=== PATIENT | female | born 2000 | race Caucasian/White ===

== ENCOUNTER → 2019-02-08 17:35 | Outpatient (CLI) | payer OTHER, SELFPAY ==
[2019-02-10 23:11] LABS: Neisseria gonorrhoeae, NAA Negative (Negative)
== END ==
PROVIDERS: Visit Provider Nurse Practitioner Obstetrics & Gynecology
DX: Z34.90 Encounter for supervision of normal pregnancy, unspecified, unspecified trimester (principal)
CPT/HCPCS: 87491; 87591

== ENCOUNTER → 2019-02-15 10:05 | Outpatient (CLI) | payer OTHER, SELFPAY ==
[2019-02-15 11:11] LABS: Basophils % 0.3 % (0.1-2.0); Eosinophils # 0.2 K/mm3 (0.0-0.4); Eosinophils % 3.8 % (0.1-12.0); Hematocrit 39.8 % (37.0-47.0); Hemoglobin 13.6 g/dL (12.2-16.2); Lymphocytes # 1.4 K/mm3 (0.7-4.5); Lymphocytes % 22.4 % (10-50); Mean Corpuscular HGB Conc 34.1 g/dL (31.8-35.4); Mean Corpuscular Hemoglobin 30.2 pg (27.0-31.2); Mean Corpuscular Volume 88.6 fl (81-99); Mean Platelet Volume 7.7 fl (7.4-10.4); Monocytes # 0.3 K/mm3 (0.1-1.0); Monocytes % 4.6 % (1.7-9.3); Neutrophils # 4.3 K/mm3 (1.8-7.8); Neutrophils % 68.9 % (37.0-80.0); Platelet Count 180 K/mm3 (142-424); Red Blood Count 4.49 M/mm3 (4.20-5.40); Red Cell Distribution Width 12.7 % (11.5-17.5); White Blood Count 6.3 K/mm3 (4.5-13.0)
--- NOTE | 2019-02-15 13:56 | US_ITS ---
US OB transvaginal HISTORY: ITS.REASON: US OB Dates ORDERING PHYSICIAN: Emery Guevara MD PATIENT AGE: 18 years COMPARISON: None FINDINGS: An intrauterine gestational sac is present with a pole with a crown-rump length of 3.11cm correlating to gestational age of 10w0d. heart tones are present with an FHR of 167 bpm's. Yolk sac is noted. The amnion and chorion have not yet fused. Adnexa: Unremarkable. IMPRESSION: Live intrauterine gestation at 10 weeks 0 days as described above. Estimated due date by Ultrasound is 09/13/2019
[2019-02-16 07:39] LABS: HIV Screen 4th Generation wRfx Non Reactive (Non Reactive)
[2019-02-16 09:21] LABS: Hepatitis B Surface Antigen Negative (Negative); Hepatitis C Antibody <0.1 s/co ratio (0.0-0.9); Rapid Plasma Reagin Ab Titer Non Reactive (NonRea<1:1); Rubella Antibodies, IgG 1.39 index (Immune >0.99)
== END ==
PROVIDERS: Visit Provider Nurse Practitioner Obstetrics & Gynecology
DX: Z34.90 Encounter for supervision of normal pregnancy, unspecified, unspecified trimester (principal); O26.841 Uterine size-date discrepancy, first trimester
CPT/HCPCS: 36415; 76817; 85025; 86592; 86703; 86762; 86850; 87340; 87380; G0432

== ENCOUNTER → 2019-04-28 12:45 | Outpatient (CLI) | payer OTHER, SELFPAY ==
--- NOTE | 2019-04-28 12:57 | US_ITS ---
US OB /maternal detail: INDICATION: ITS.REASON: US OB Complete ORDERING PHYSICIAN: Emery Guevara MD PATIENT AGE: 18 years TECHNIQUE: ultrasound transabdominal scanning. COMPARISON: No previous relevant studies. FINDINGS: Single viable intrauterine gestation. Cephalic position. Placenta: Anterior placenta grade 1. There appears to be an accessory lobe with the posterior fundal area. There is average amount fluid. The cervix appears satisfactory. Closed and measuring 3 cm in length. Complete survey performed and was unremarkable on the submitted images as in PACS. No discrete anomalies identified on survey imaging by technologist. Active fetus. Three-vessel cord with satisfactory umbilical cord insertion. 4- chamber heart noted. Survey of brain & ventricles unremarkable. Face and neck survey unremarkable. Diaphragm and chest views unremarkable. Abdomen: Both kidneys noted and unremarkable. Stomach noted and satisfactory. Spine: Survey of the spine satisfactory with no anomalies identified nor imaged. Both arms and legs noted. Amniotic Fluid: Adequate. Maternal adnexa: No significant findings. Measurements: Average ultrasound age 21w0d. Gestational Age 20w2d. Estimated due date by ultrasound age 1109/08/2019. Estimated weight 373 grams. BPD = 21w4d OFD = 21w2d HC = 20w5d AC = 20w6d FL = 20w5d Growth Percentile= 70 percent Heart Rate = 150 bpm Cerebellum = 20w2d Humerus = 20w6d HC/AC is 1.17 (1.09-1.26). CI is 80% (70-86%). FL/BPD is 66%. FL/AC is 22%. IMPRESSION: There is a single live fetus which is in cephalic presentation with an average ultrasound age of 21 weeks and 0 days. All parameters correlate with no obvious anomalies. Please see above for detailed description
== END ==
PROVIDERS: PCP Family Medicine; Visit Provider Nurse Practitioner Obstetrics & Gynecology
DX: Z36.0 Encounter for antenatal screening for chromosomal anomalies (principal)
CPT/HCPCS: 76811

== ENCOUNTER 2019-06-19 09:19 | Outpatient (CLI) | payer OTHER, SELFPAY ==
[2019-06-19 10:19] LABS: Glucose,Fasting 79 mg/dL (60-105)
[2019-06-19 10:55] VITALS: BP 116/52; PULSE 93; RESP 18; TEMP 36.6; O2SAT 98
[2019-06-19 11:24] LABS: Glucose 1 Hour 106 mg/dL (74-106)
== END 2019-06-19 11:10 | disposition home or self-care (01) ==
LOC: LAB 09:19
PROVIDERS: Visit Provider Nurse Practitioner Obstetrics & Gynecology
DX: Z34.90 Encounter for supervision of normal pregnancy, unspecified, unspecified trimester (principal)
CPT/HCPCS: 36415; 82951; 96372; J2790

== ENCOUNTER → 2019-08-14 17:19 | Outpatient (CLI) | payer OTHER, SELFPAY | PROVIDERS: Visit Provider Nurse Practitioner Obstetrics & Gynecology | DX: Z34.90 Encounter for supervision of normal pregnancy, unspecified, unspecified trimester (principal) | CPT/HCPCS: 86403 ==

== ENCOUNTER → 2019-08-17 09:30 | Outpatient (CLI) | payer OTHER, SELFPAY ==
--- NOTE | 2019-08-17 09:35 | US_ITS ---
PROCEDURE: US OB BPP W/FET-MAT S/D CLINICAL INDICATION: US OB BPP/GROWTH for SGA COMPARISON: OBFEMAT US OB /maternal detail from 04/28/2019 FINDINGS: There is a single live fetus which is in cephalic presentation. heart and body motion noted. breathing movement noted. Measurements: Average ultrasound age 36 weeks 3 days. Gestational Age 36 weeks 1 day Estimated due date by ultrasound age 1109/11/2019. Estimated weight 2,887.6 ggrams. BPD = 35 weeks 4 days OFD = HC = 37 weeks 0 days AC = 35 weeks 6 days FL = 37 weeks 2 days Growth Percentile= 55 percentile% Heart Rate = 142 bpm Cerebellum = Humerus = HC/AC is 1.02 CI is 0.75 FL/BPD is 0.83 FL/AC is 0.23 The biophysical profile is 8 of 8. Umbilical artery evaluation shows an SD ratio of 2.9 and a resistive index of 0.66 both less than 95th percentile Amniotic fluid index is low at 7 cm. The placenta is fundal and anterior in implantation and is grade 3 IMPRESSION: There is a single live fetus in cephalic presentation with an average ultrasound age of 36 weeks and 3 days. All parameters correlate. Estimated weight is 2887 g which is 55th percentile The biophysical profile is 8 of 8. Umbilical artery evaluation shows an SD ratio of 2.9 and a resistive index of 0.66 both less than 95th percentile Amniotic fluid index is low at 7 cm. The placenta is fundal and anterior in implantation and is grade 3 Dictated by: Jackson Felix MD 08/17/2019 17:57 Electronically signed by Jackson Felix MD in [facility] 08/17/2019 17:57
== END ==
PROVIDERS: PCP Family Medicine; Visit Provider Nurse Practitioner Obstetrics & Gynecology
DX: O36.5990 Maternal care for other known or suspected poor fetal growth, unspecified trimester, not applicable or unspecified (principal)
CPT/HCPCS: 76819

== ENCOUNTER 2019-08-26 20:29 | Outpatient (CLI) | payer OTHER, SELFPAY ==
[2019-08-26 20:39] VITALS: BMI 20.3
[2019-08-26 20:49] LABS: Microscopic, Urine URINE MICROSCOPIC (MICROSCOPIC)
[2019-08-26 20:53] LABS: Appearance,Urine CLEAR (Clear); Bilirubin,Urine Negative (Negative); Blood, Urine Negative (Negative); Color,Urine YELLOW (Yellow); Glucose,Urine (UA) Negative (Negative); Ketones,Urine Negative (Negative); Leukocyte Esterase,Urine TRACE (Negative); Nitrate,Urine Negative (Negative); Protein,Urine Negative (Negative); Urobilinogen,Urine 0.2 EU/dl (0.2)
[2019-08-26 20:54] VITALS: BP 162/91; PULSE 83; RESP 18; TEMP 36.9; O2SAT 97; BMI 20.6
[2019-08-26 21:00] LABS: Amphetamine/Metha Screen,Urine Negative ng/mL (<1000); Barbiturates Screen,Urine Negative ng/mL (<200); Benzodiazepines Screen,Urine Negative ng/mL (<200); Cannabinoid Screen,Urine Negative ng/mL (<50); Cocaine Screen,Urine Negative ng/mL (<300); Methadone Screen,Urine Negative ng/mL (<300); Opiate Screen,Urine Negative ng/mL (<300); Phencyclidine Screen,Urine Negative ng/mL (<25)
== END 2019-08-26 22:50 | disposition home or self-care (01) ==
LOC: OBOUT 20:32 → OB 20:33
PROVIDERS: PCP Family Medicine; Visit Provider Obstetrics & Gynecology
DX: O60.03 Preterm labor without delivery, third trimester (principal); Z3A.37 37 weeks gestation of pregnancy
CPT/HCPCS: 59025; 80305; 81001; 96360

== ENCOUNTER 2019-09-01 04:56 | Inpatient (IN) ==
[2019-09-01 05:40] LABS: Microscopic, Urine URINE MICROSCOPIC (MICROSCOPIC)
[2019-09-01 05:42] LABS: Basophils % 0.3 % (0.1-2.0); Eosinophils # 0.1 K/mm3 (0.0-0.4); Eosinophils % 1.3 % (0.1-12.0); Hematocrit 30.9 % (37.0-47.0); Hemoglobin 10.3 g/dL (12.2-16.2); Lymphocytes # 1.6 K/mm3 (0.7-4.5); Lymphocytes % 26.9 % (10-50); Mean Corpuscular HGB Conc 33.2 g/dL (31.8-35.4); Mean Corpuscular Volume 89.4 fl (81-99); Mean Platelet Volume 10.5 fl (7.4-10.4); Monocytes # 0.3 K/mm3 (0.1-1.0); Monocytes % 5.5 % (1.7-9.3); Neutrophils # 3.9 K/mm3 (1.8-7.8); Platelet Count 176 K/mm3 (142-424); Red Blood Count 3.45 M/mm3 (4.20-5.40); Red Cell Distribution Width 13.6 % (11.5-17.5)
[2019-09-01 05:51] LABS: Appearance,Urine CLEAR (Clear); Bilirubin,Urine Negative (Negative); Blood, Urine Negative (Negative); Color,Urine YELLOW (Yellow); Glucose,Urine (UA) Negative (Negative); Ketones,Urine Negative (Negative); Leukocyte Esterase,Urine Negative (Negative); Protein,Urine Negative (Negative); Specific Gravity, Urine >= 1.030 (1.005-1.030); Urobilinogen,Urine 0.2 EU/dl (0.2)
[2019-09-01 06:14] LABS: Amphetamine/Metha Screen,Urine Negative ng/mL (<1000); Barbiturates Screen,Urine Negative ng/mL (<200); Benzodiazepines Screen,Urine Negative ng/mL (<200); Cannabinoid Screen,Urine Negative ng/mL (<50); Cocaine Screen,Urine Negative ng/mL (<300); Methadone Screen,Urine Negative ng/mL (<300); Opiate Screen,Urine Negative ng/mL (<300); Phencyclidine Screen,Urine Negative ng/mL (<25)
[2019-09-01 06:16] LABS: Bacteria,Urine Trace /lpf; WBC,Urine Occasional #/hpf (0-3)
--- NOTE | 2019-09-01 07:35 | Progress Note ---
Labor Note - Subjective: Date: 09/01/19 Time: 07:35 regular contraction - Objective: NST:: Reactive Contractions:: every 2-3 minutes Cervical Dilation:: 3 Effacement:: 90% Station: 0 Membranes: artificially ruptured - Fetus: Monitoring?: Yes monitoring type:: External - Assessment: Labor progressing?: Yes Cephalopelvic disproportion?: No Patient Problems: All Active Problems (Acute) Fall (Acute) Hip pain, right (Acute) - Plan: Anesthesia for epidural?: No Continue to labor down?: Yes Plan for ?: No Continue to monitor?: Yes Start pushing?: No
--- NOTE | 2019-09-01 07:37 | History & Physical Report ---
OB - H&P: HPI Antepartum - History of Present Illness Chief complaint: Oligohydramnios History of present illness: She is a 18-year-old 1 para 0 at 38+ weeks gestational age. She was seen in my office and an ultrasound showed that she had oligohydramnios with an amniotic fluid index between 4 and 5. As result of that we elected to admit her and induce her labor. - History of Present Criteria for establishing EDC:: LMP confirmed by 1st trimester US care: good care Ultrasounds: normal 1st trimester US, normal mid trimester US Obstetrical complications: other Medical complications: none [facility] History I have reviewed the patient's past medical history: Yes *Have you ever received a pneumonia vaccine?: No *Have you received a flu vaccine this season?: No Other Surgeries: Yes: No Previous Surgery. No: Amputation: No Fractures: No - *Social History Smoking Status: Former smoker Tobacco Type: cigarettes # Packs/Day (cigarettes): 1 Alcohol Intake: never Substance Use Type: denies use *Occupational Status:: employed *Travel in the last 8 weeks: None Family Hx:: No significant family history MED CARE MANAGER history: No MED CARE MANAGER history Para: 0 Review of Systems - Review of Systems Review of systems:: pertinent systems reviewed and negative unless documented below Meds Home Medications Medication Instructions Recorded Confirmed Type 1 tab PO DAILY 02/08/19 09/01/19 History vitamin,calcium,frzmzffy-qgfn-ahlrl acid tablet Ferrous Sulfate 325 mg PO DAILY 06/19/19 09/01/19 History Allergies Allergy/AdvReac Type Severity Reaction Status Date / Time No Known Allergies Allergy Verified 08/30/19 10:39 OB - H&P: Exam - Physical Exam Vital signs: Temp Pulse Resp BP Pulse Ox 98.0 F 104 H 18 143/86 H 100 09/01/19 05:17 09/01/19 05:17 09/01/19 05:17 09/01/19 05:17 09/01/19 05:17 - Constitutional no acute distress - Routine HEENT Exam Head: Present: normocephalic Eye: Present: EOMI, PERRL ENT: Present: mucous membranes moist - Routine Neck Exam Present: supple, full ROM - Routine Respiratory Exam Absent: accessory muscle use (good air entry bilaterally), respiratory distress, wheezes, crackles - Routine Cardiovascular Exam Present: RRR. Absent: murmur - Routine Abdominal Exam Present: soft, normoactive bowel sounds. Absent: tenderness, distended, guarding - Routine Rectal Exam Patient deferred: visual exam, digital exam - Routine Exam Patient deferred: external exam, groin exam, perineal exam - Routine Extremities Exam Present: full ROM. Absent: cyanosis, edema - Routine Skin Exam Present: intact. Absent: cyanosis - Routine Neurological Exam Present: alert, oriented X3 - Routine Psychiatric Exam Present: normal affect OB - Results - Labs Labs: Short CBC 09/01/19 Range/Units 05:23 WBC 6.0 (4.5-13.0) K/mm3 Hgb 10.3 L (12.2-16.2) g/dL Hct 30.9 L (37.0-47.0) % Plt Count 176 (142-424) K/mm3 Urine 09/01/19 Range/Units 05:20 Urine Color Yellow (Yellow) Urine Appearance Clear (Clear) Urine pH 6.0 (5.0-8.5) Ur Specific [place] >= 1.030 (1.005-1.030) Urine Protein Negative (Negative) Urine Glucose (UA) Negative (Negative) OB - A/P Antepartum (1) Normal delivery at term Current visit: Yes Status: Acute (2) Oligohydramnios antepartum Current visit: Yes Status: Acute - Additional Plan Planning to breastfeed?: No Plan: induction Additional Information:: She has oligohydramnios so we will induce her labor.
--- NOTE | 2019-09-01 08:41 | Progress Note ---
[facility] Anesthesia Checklist - Patient Identification Patient Identification: Arm Band, Verbal (Name & ) - Structural Data Admitted From: Inpatient (OB) Planned Operative Procedure/s: Labor epidural Consent for Planned Operative Procedure(s) Verified: Yes Verified Documents: Surgical Consent, History and Physical - Chart Verification Results Verified: CBC - Additional verifications Patient : Yes Anesthesia Reactions: No - Airway Assessment C-Spine Mobility Assessed: Yes TMJ Mobility Assessed: Yes Dentition: Poor Dentition - Neurological Assessment Level of Consciousness: Awake, Alert, Appropriate, Follows Commands Hx Seizures: No Numbness or tingling in extremities: No - Anesthesia Plan Anesthesia Risk discussed: Yes Anesthesia Plan: Verified ASA Class: II Anesthesia Type: Epidural [facility] History I have reviewed the patient's past medical history: Yes *Have you ever received a pneumonia vaccine?: No *Have you received a flu vaccine this season?: No Anesthesia experience/problems:: none Other Surgeries: Yes: No Previous Surgery. No: Amputation: No Fractures: No - *Social History Smoking Status: Former smoker Tobacco Type: cigarettes # Packs/Day (cigarettes): 1 Alcohol Intake: never Substance Use Type: denies use *Occupational Status:: employed *Travel in the last 8 weeks: None Family Hx:: No significant family history MACHINIST JOB SETTER history: No MACHINIST JOB SETTER history Para: 0
--- NOTE | 2019-09-01 11:04 | Progress Note ---
Labor Note - Subjective: Date: 09/01/19 Time: 10:00 regular contraction - Objective: NST:: Reactive Contractions:: every 2-3 minutes Cervical Dilation:: 6 Effacement:: 100% Station: 0 Membranes: artificially ruptured - Fetus: Monitoring?: Yes monitoring type:: External - Assessment: Labor progressing?: Yes Cephalopelvic disproportion?: No Patient Problems: All Active Problems Normal delivery at term (Acute) Oligohydramnios antepartum (Acute) (Acute) Fall (Acute) Hip pain, right (Acute) - Plan: Anesthesia for epidural?: Yes Continue to labor down?: Yes Plan for ?: No Continue to monitor?: Yes Start pushing?: No
--- NOTE | 2019-09-01 11:39 | Procedure Note ---
- Delivery Note Delivery Date:: 09/01/19 Delivery Time:: 11:23 Anesthesia Type: Epidural Was labor medically induced?: Yes Induction method: per pitocin protocol Gestational age (weeks): 38 Infant delivered prior to 39 weeks?: Yes Justification for early elective delivery:: Oligohydraminos Gender: Male at 1 minute: 8 at 5 minutes: 9 LAC or MLE?: LAC Delivery Procedure:: She is a 18-year-old 1 para 0 at 38+ weeks gestational age. She was seen in my office and had low amniotic fluid. As result of that she was brought in for induction of labor at term. She was started on IV oxytocin and had her membranes ruptured. Under labor epidural she progressed to full dilation and delivered spontaneously a liveborn male child at 11:23 AM on the morning of September 01, 2019. On deliver the head the anterior shoulder then rapidly delivered followed by the rest of infant's body atraumatically. The baby cried spontaneously and was vigorous. We allowed the cord to continue to pulsate for approximately 1 minute. The cord was then doubly clamped and cut and the infant was placed on the mother's abdomen for further care. The nurses assigned Apgars of 8 at 1 minute and 9 at 5 minutes. We then obtained cord blood as well as cord pH. She received IV oxytocin and using gentle traction on the cord and countertraction the fundus I was able to easily deliver the placenta intact. He had a normal three-vessel cord. She had a small second-degree perineal laceration that was repaired with 3-0 Vicryl Rapide suture to the superficial tissues of the vagina and 2-0 Vicryl to the deep tissues of the perineum. She has be Rh- blood, she is rubella immune and was group B strep coccus negative. She plans to bottlefeed. Her manufacturing operator is Dr. Mcclain. Estimated blood loss was approximately 400 cc. Laceration:: vaginal Placental Delivery Description: Spontaneous
[2019-09-02 06:12] LABS: Hematocrit 30.3 % (37.0-47.0); Hemoglobin 9.8 g/dL (12.2-16.2)
--- NOTE | 2019-09-02 14:37 | Progress Note ---
Internal Medicine - PN: Subj *Date: 09/02/19 *Time: 14:36 Interval history: She continues to do well. She is eating and drinking and ambulating. She is bottlefeeding. Her lochia is normal. Exam Vital signs and Labs for Last 24 Hours: Temp Pulse Resp BP Pulse Ox 98.7 F 86 18 121/68 98 09/02/19 12:00 09/02/19 12:00 09/02/19 12:00 09/02/19 12:00 09/02/19 12:00 Laboratory Results - last 24 hr 09/01/19 05:23: Antibody Identification Anti-D 09/02/19 06:00: Hgb 9.8 L, Hct 30.3 L 09/02/19 06:00: Blood Type B Negative, Antibody Screen Positive, Screen Negative, Baby's Rh Status Positive 09/02/19 08:17: Rhogam Infusion Rhogam release I & O for Last 24 hours: Intake & Output 08/31/19 09/01/19 09/02/19 09/03/19 11:59 11:59 11:59 11:59 Output Total 200 / 200 Balance -200 / -200 Weight 130 lb - Constitutional no acute distress Assessment and Plan (1) Normal delivery at term Current visit: Yes Status: Acute Category: Medical Code(s): O80 - Encounter for full-term uncomplicated delivery (2) Oligohydramnios antepartum Current visit: Yes Status: Acute Category: Medical Code(s): O41.00X0 - Oligohydramnios, unspecified trimester, not applicable or unspecified - Assessment and plan all Dx Assessment and Plan for all problems:: She continues to do well. We will plan to send her home tomorrow.
--- NOTE | 2019-09-03 07:40 | Discharge Summary ---
General - General Admission date:: 09/01/19 Discharge date: 09/03/19 HPI HPI: She is a 18-year-old 1 para 0 who was 38+ weeks gestational age. An ultrasound in my office confirmed that she had oligohydramnios with an amniotic fluid index between 4 and 5. As result of that she was brought in at term for induction of labor. Hospital Course Hospital Course: She was started on IV oxytocin and progressed under labor epidural to full dilation. She delivered spontaneously a liveborn male child at 11:23 AM on the morning of September 01, 2019. The baby was a liveborn male child weighing 6 pounds 7 ounces and he was 19 inches long. She had Apgars of 8 at 1 minute and 9 at 5 minutes. She had a small second-degree perineal laceration. She has done well and has remained afebrile throughout her hospitalization. She is eating and drinking and ambulating. She is bottlefeeding. Her lochia is normal. She is discharged home to follow-up with me in approximately 2 weeks time. She will continue with her vitamins and iron. She is taking [id number] analgesics for discomfort. She has B Rh- blood and has received RhoGam. She is rubella immune and was group B streptococcus negative. Her senior sql dba is Dr. Mcclain. Her condition on discharge is stable. Rhogam Administration: Given Objective Vital signs: Temp Pulse Resp BP Pulse Ox 98.6 F 83 16 135/59 L 98 09/03/19 04:00 09/03/19 04:00 09/03/19 04:00 09/03/19 04:00 09/03/19 04:00 no acute distress Results Labs on day of discharge: Labs from last 24 hours 09/02/19 09/02/19 09/02/19 08:17 06:00 06:00 Blood Type B Negative Antibody Screen Positive Antibody Identification Pending Screen Negative Baby's Rh Status Positive Rhogam Infusion Rhogam release DS: Diagnosis - Discharge Diagnosis (1) Normal delivery at term Status: Acute (2) Oligohydramnios antepartum Status: Acute Discharge Plan - Patient Discharge Instructions ACTIVITY: No heavy lifting DIET: continue same diet - Follow up Plan Disposition: Home, Self-Assisted Medications: Home Medications Medication Instructions Recorded Confirmed Type 1 tab PO DAILY 02/08/19 09/01/19 History vitamin,calcium,ikcxrifi-kylk-dlenh acid tablet Ferrous Sulfate 325 mg PO DAILY 06/19/19 09/01/19 History Prescriptions/Medication Reconciliation: Continued vitamin,calcium,myesgmdn-pmet-mwoan acid tablet 1 tab PO DAILY Ferrous Sulfate 325 mg PO DAILY - Problem Reconciliation Problems Reviewed?: Yes
[2019-09-03 08:18] VITALS: BP 126/72
--- OUTSIDE RECORDS SUMMARY | 2019-09-04 15:12 | External Medical Summary | Continuity of Care Document ---
:2000 Author Organization [facility] Address [address] [place] [address] Phone Care Team Providers Name Role Phone Ismael Attending Provider Johny Primary Care Provider Jj Attending Provider Alfie Dee Attending Provider Allergies, Adverse Reactions, Alerts No known allergies. Medications Medication Status Dose Units Route Sig Qty Days Start End Instruct ions Date Date Vit Active 1 TAB Oral Daily January Calc,Iron,Fo 2018 10:26am Ferrous Active 325 MG Oral Daily May 11:44am Problems Active Problems Medical Problem Onset Date Status Normal delivery at term Active Oligohydramnios antepartum Active Active Hip pain, right Active Fall Active Procedures Procedure Date Performed Status US OB BPP w/Fet-Mat & S/D August 17, 2019 completed Group B Streptococcus Screen August 14, 2019 completed (LEELEE) Relevant Diagnostic Tests and/or Laboratory Data Laboratory Results Test Date/Time Result Interpretation Reference Result Perfo rming Range Comment Site Urine Color May 3:23pm Urine Color May 3:24pm Urine Color June 2:24pm Urine Color June 2:46pm Urine Color July 11:48am Urine Color October Linda 2018 10:13am Urine Color October Yellow 2018 10:33am Urine Color November Linda 2018 10:35am Urine [place] Cloudy Appearance 2018 3:23pm Urine [place] Clear Appearance 2018 3:24pm Urine Ruth Slightly Appearance 2018 Cloudy 2:24pm Urine Ruth Clear Appearance 2018 2:46pm Urine October Clear Appearance 2018 11:48am Urine October Cloudy Appearance 2018 10:13am Urine October Clear Appearance 2018 10:33am Urine November Clear Appearance 2018 10:35am Urine Glucose [place] 1+ (UA) 2018 3:23pm Urine Glucose [place] 2+ (UA) 2018 3:24pm Urine Glucose Urth See comment 500 mg (UA) 2018 2:24pm Urine Glucose Ruth Negative (UA) 2018 2:46pm Urine Glucose October Negative (UA) 2018 11:48am Urine Glucose October 1+ (UA) 2018 10:13am Urine Glucose October Negative (UA) 2018 10:33am Urine Glucose November Negative (UA) 2018 10:35am Urine [place] negative Bilirubin 2018 3:23pm Urine [place] negative Bilirubin 2018 3:24pm Urine Ruth negative Bilirubin 2018 2:24pm Urine Ruth negative Bilirubin 2018 2:46pm Urine October negative Bilirubin 2018 11:48am Urine October negative Bilirubin 2018 10:13am Urine October negative Bilirubin 2018 10:33am Urine November negative Bilirubin 2018 10:35am Urine Ketones [place] Negative mg/dL 2018 3:23pm Urine Ketones [place] Negative mg/dL 2018 3:24pm Urine Ketones Ruth Negative mg/dL 2018 2:24pm Urine Ketones Ruth Trace 5 mg/dL 2018 2:46pm Urine Ketones October Negative mg/dL 2018 11:48am Urine Ketones October Negative mg/dL 2018 10:13am Urine Ketones October Negative mg/dL 2018 10:33am Urine Ketones November Negative mg/dL 2018 10:35am Urine Specific [place] 1.020 [place] 2018 3:23pm Urine Protein [place] Negative 2018 3:24pm Urine Protein Ruth Negative 2018 2:24pm Urine Protein Ruth Negative 2018 2:46pm Urine Protein October Negative 2018 11:48am Urine Protein July Negative 2018 10:13am Urine Protein July Negative 2018 10:33am Urine Protein November Negative 2018 10:35am Urine Blood May negative 2018 3:23pm Urine pH [place] 7.0 2018 3:24pm Urine pH Ruth 6.5 2018 2:24pm Urine pH Ruth 7.0 2018 2:46pm Urine pH October 6.5 2018 11:48am Urine pH October 5.5 2018 10:13am Urine pH October 5.5 2018 10:33am Urine pH November 5.5 2018 10:35am Urine pH [place] 6.5 2018 3:23pm Urine Blood [place] negative 2018 3:24pm Urine Blood Ruth negative 2018 2:24pm Urine Blood Ruth negative 2018 2:46pm Urine Blood October negative 2018 11:48am Urine Blood October negative 2018 10:13am Urine Blood October negative 2018 10:33am Urine Blood November nonhemolyzed 2018 trace 10:35am Urine Protein May Negative 2018 3:23pm Urine Specific [place] 1.020 [place] 2018 3:24pm Urine Specific Ruth 1.015 [place] 2018 2:24pm Urine Specific Ruth 1.020 [place] 2018 2:46pm Urine Specific October 1.020 [place] 2018 11:48am Urine Specific October 1.030 [place] 2018 10:13am Urine Specific October 1.020 [place] 2018 10:33am Urine Specific November 1.025 [place] 2018 10:35am Urine [place] 0.2 Urobilinogen 2018 Dipstick 3:23pm Urine [place] 0.2 Urobilinogen 2018 Dipstick 3:24pm Urine Ruth 0.2 Urobilinogen 2018 Dipstick 2:24pm Urine Ruth 0.2 Urobilinogen 2018 Dipstick 2:46pm Urine October 0.2 Urobilinogen 2018 Dipstick 11:48am Urine October 0.2 Urobilinogen 2018 Dipstick 10:13am Urine October 0.2 Urobilinogen 2018 Dipstick 10:33am Urine August 1 Urobilinogen 2018 Dipstick 10:35am Urine Nitrate May Negative 2018 3:23pm Urine Nitrate May Negative 2018 3:24pm Urine Nitrate June Negative 2018 2:24pm Urine Nitrate June Negative 2018 2:46pm Urine Nitrate October Negative 2018 11:48am Urine Nitrate July Negative 2018 10:13am Urine Nitrate October Negative 2018 10:33am Urine Nitrate November Negative 2018 10:35am Urine [place] Negative Leukocyte 2018 Esterase 3:pm Urine May Trace Leukocyte 2018 Esterase 3:24pm Urine June Negative Leukocyte 2018 Esterase 2:24pm Urine June Negative Leukocyte 2018 Esterase 2:46pm Urine October Trace Leukocyte 2018 Esterase 11:48am Urine October Negative Leukocyte 2018 Esterase 10:13am Urine July Trace Leukocyte 2018 Esterase 10:33am Urine August Trace Leukocyte 2018 Esterase 10:35am Fasting [place] 79 mg/dL 60-105 [facility], [address] [place] [address] 36 [address] Glucose 2018 [place] [address] 9:20am Glucose 1 Hour May 106 mg/dL 74-106 [facility], [address] [place] [address] [address] 2018 [place] [address] 9:20am Urine Fasting May Negative mg/dL [facility], [address] [place] [address] 36 [address] Glucose 2018 [place] [address] 9:20am Urine Glucose May 2+ mg/dL [facility], [address] [place] [address] 36 E 1 Hour 2018 [place] [address] 9:20am Microbiology Results Procedure Source Result Collection Result Result Performin g Date/Time Date/Time Comment Site Group B Vaginal Negative August 14July [facility], [address] [place] [address] 36 E Streptococcus for Group B 2018 9:59am [address] [place] [id number] Screen (LEELEE) Streptococc 9:18am us. Diagnostic Imaging Reports Report Dictated Date/Time Dictated By Status Radiology Report August 17, 2019 Jackson Felix MD completed 9:59am [address] [place] [address] Ultrasoun d Report Sig araseli Patient: Angelique Dick MR#: [id number] : 2000 Acct:[id number] Age/Sex: 18 / F ADM Date: 9 Loc: RAD Attending Dr: Emery Guevara MD Ordering Physician: Emery Guevara MD Date of Service: 08/17/19 Procedure(s): US OB BPP w/Fet-Mat & S/D Accession Number(s): [id number] cc: Jackson Felix MD; Robert Mcclain MD~ PROCEDURE: US OB BPP W/FET-MAT S/D CLINICAL INDICATION: US OB BPP/GROWTH for SGA COMPARISON: OBFEMAT US OB /matern al detail from 04/28/2019 FINDINGS: There is a single live fetus which is i n cephalic presentation. heart and body motion noted. Fet al breathing movement noted. Measurements: Average ultrasound age 36 weeks 3 days. Gestational Age 36 weeks 1 day Estimated due date by ultrasound age 9. Estimated weight 2,887.6 ggrams. BPD = 35 weeks 4 days OFD = HC = 37 weeks 0 days AC = 35 weeks 6 days FL = 37 weeks 2 days Growth Percentile= 55 percentile% Heart Rate = 142 bpm Cerebellum = Humerus = HC/AC is 1.02 CI is 0.75 FL/BPD is 0.83 FL/AC is 0.23 The biophysical profile is 8 of 8. Umbilical artery evaluation shows an SD ratio of 2.9 and a resistive index of 0.66 both less than 95th perce ntile Amniotic fluid index is low at 7 cm. The placenta is fundal and anterior in implantation and is grade 3 IMPRESSION: There is a single live fetus in cephali c presentation with an average ultrasound age of 36 weeks and 3 days. All parameters correlate. Estimated weight is 2887 g which is 55th percentile The biophysical profile is 8 of 8. Umbilical artery evaluation shows an SD ratio of 2.9 and a resistive index of 0.66 both less than 95th perce ntile Amniotic fluid index is low at 7 cm. The placenta is fundal and anterior in implantation and is grade 3 Dictated by: Jackson Felix MD 08/17/2019 17:57 Electronically signed by Jackson Felix in OV 08/17/2019 17:57 Advance Directives Advance Directive Response Recorded Date/Time Does the patient have an No August 31 019 11:56am advanced directive on file? Living Will No August 31, 2019 1 1:56am Does the patient have an No August 14 10:22am advanced directive on file? Living Will No August 14, 2019 1 0:22am Does the patient have an No June 21 3:29pm advanced directive on file? Living Will No June 21, 2019 3: 29pm Chief Complaint and Reason for Visit Chief Complaint LAB WORK OFFICE DROP OFF sga NST due date 09/13 contracti ons Induction Reason for Visit Normal delivery at term Oligohydramnios antepartum Encounters Encounter Location(s) Arrival/Admit Date Discharge/Depart Date Provider(s) Departed [facility] Physician June 07, 2019 June 07, 2019 Delvin Guevara Physician[facility] 2:48pm 3:31pm [facility] Ismael Visit Departed [facility] Physician June 19, 2019 June 19, 2019 Delvin Guevara Clinical Group-Laboratory 9:19am 11:10am Departed [facility] Physician June 21, 2019 June 21, 2019 Delvin Guevara Physician[facility] 2:54pm 3:27pm [facility] Ismael Visit Departed [facility] Physician July 04, July 04, 2019 Ortega Physician/[facility] 2018 1:48pm 2:40pm [facility] Ismael Visit Departed [facility] Physician July 18, July 18, 2019 [place] Physician[facility] 2018 1:53pm 2:57pm [facility] Ismael Visit Departed [facility] Physician July 31, 2019 July 31, 2019 Delvin Guevara Physician[facility] 10:27am 11:35am [facility] Ismael Visit Departed [facility] Physician August 14, 2019 August 14, 2019 [place] Physician/[facility] 9:51am 10:25am [facility] Ismael Visit Registered [facility] Physician August 14, 2019 Emery christianson Clinical Group-Lab Drop 5:19pm MD Off to [facility] Registered [facility] Physician August 17, 2019 Emery christianson , Clinical Group-Radiology 9:30am Departed [facility] Physician August 21, 2019 August 21, 2019 [place] Physician[facility] 9:07am 10:13am [facility] Ismael Visit Registered [facility] Physician August 26, 2019 August 26, 2019 Doris Gardner , Inpatient Group-Women's 8:29pm 10:50pm MD Julita Guevara Departed [facility] Physician August 30, 2019 August 30, 2019 [place] Physician[facility] 10:31am 11:05am [facility] Ismael Visit Registered [facility] Physician September 01, 2019 Emery christianson Inpatient Group-Women[facility] 4:56am MD Julita Guevara Registered [facility] Physician September 04 S Inpatient Group- 2018 3:07pm MD Luiz Recent Diagnosis Onset Date Normal delivery at term Oligohydramnios antepartum Assessments Diagnosis Onset Date Resolution Status Normal delivery at term acute Oligohydramnios antepartum acute Functional Status Observation Response Date Recorded Ambulation Ability Independent June 19, 2019 11 :10am Functional status ambulatory August 31, 2019 1 1:56am Functional status ambulatory August 14, 2019 1 0:22am Functional status ambulatory June 07, 2019 3: 31pm Functional status ambulatory August 21, 2019 1 0:18am Functional status ambulatory July 31, 2019 11 :49am Functional status ambulatory July 18, 2019 3:10pm Functional status ambulatory July 04, 2019 2:53pm Functional status ambulatory June 21, 2019 3: 29pm Goals Acute Goals Nursing Diagnosis: Knowledge Deficit D isease/Condition Goal(s): Education of di sease process Instruction(s): Follow provider p kim/instructions (See attached discharge education) Follow/up with primary care provider as instructed in discharge packet Ambulatory Goals Pt. verbalized understanding of disease process/healthy behavior/Pt. to follow plan of care/education provided Mental Status No Mental Status Information Available Medical Equipment No Medical Equipment Information available Insurance Providers Guarantor Angelique Dick Address [address] [place] [address] Contact Info. Home Phone: Payer Policy Id Coverage Id Subscriber's Subscriber Effective Expi ration Name Id Date Date [facility] [id number] Jackson Dick [id number] [facility] Self Pay Self N/A [facility] [id number] [facility] Plan of Treatment She has oligohydramnios with an amniotic fluid index between 4 and 5 we will go ahead and deliver her in 48 hours. She is now 38+ weeks. We will see her back again next week. We will make arranges for her to have an ultrasound since she measures up smaller than her dates. She is doing very well. The baby is active. She measures up consistent with her dates. We will get a sugar test as well as RhoGam for her in the next couple of weeks. We will see her back in 2 weeks time. She had mild oligohydramnios and today her amniotic fluid index is 9.36. There are a couple of good size pockets. I have reassured her. We will see her back again next week. She is doing well. We will see her back again in 2 weeks time. She continues to do well. We will see her back again in 2 weeks time. She is doing well. The baby is active. We will continue to watch the growth. We will see her again in 2 weeks. She continues to do well. We will see her back again in 2 weeks. Future Tests Future scheduled test information is unavailable Pending Tests Pending diagnostic test information is unavailable Future Visits Future appointment information is unavailable Referrals to Other Providers Reason for Referral Start Provider Provider Contact Provider Address Referral Date Information Admission to [facility] September [address] [place] [address] Future Procedures Future procedure information is unavailable Future Medications Future medication information is unavailable Patient Instructions Diet Diet Diet Diet Antepartum Care Diet Depression Hemorrhage [facility] Post Discharge Instructions Social History Assigned Sex Female Vital Signs Vital Reading Result Reference Range Collection Date/ Time Height 167.64 cm June 07 3:16pm Weight 52.84 kg June 07 3:16pm BP Systolic 118 mm[Hg] 110-140 June 07 3:16pm BP Diastolic 70 mm[Hg] 60-90 June 07 3:16pm BMI (Body Mass Index) 18.8 kg/m2 May 3:16pm Body Temperature 97.9 [degF] 97.6-99.6 June 19 10:55am Heart Rate 93 /min 60-90 June 19 10:55am Respiratory rate 18 /min -June 19 10:55am Oxygen saturation by 98 % 95-100 May Pulse oximetry 10:55am BP Systolic 116 mm[Hg] 110-140 June 19 10:55am BP Diastolic 52 mm[Hg] 60-90 June 19 10:55am Height 167.64 cm June 21 3:01pm Weight 53.97 kg June 21 3:01pm BP Systolic 116 mm[Hg] 110-140 June 21 3:01pm BP Diastolic 68 mm[Hg] 60-90 June 21 3:01pm BMI (Body Mass Index) 19.2 kg/m2 May 3:01pm Height 167.64 cm July 04, 2019 2:32pm Weight 54.88 kg July 04, 2019 2:32pm BP Systolic 114 mm[Hg] 110-140 July 04, 2019 2:32pm BP Diastolic 62 mm[Hg] 60-90 July 04, 2019 2:32pm BMI (Body Mass Index) 19.5 kg/m2 July 04, 2019 2:32pm Height 167.64 cm July 18, 2019 2:36pm Weight 54.54 kg July 18, 2019 2:36pm BP Systolic 100 mm[Hg] 110-140 July 18, 2019 2:36pm BP Diastolic 60 mm[Hg] 60-90 July 18, 2019 2:36pm BMI (Body Mass Index) 19.4 kg/m2 July 18, 2019 2:36pm Height 167.64 cm July 31 11:32am Weight 56.69 kg July 31 11:32am BP Systolic 136 mm[Hg] 110-140 July 31 11:32am BP Diastolic 82 mm[Hg] 60-90 July 31 11:32am BMI (Body Mass Index) 20.1 kg/m2 July 11:32am Height 167.64 cm August 14 10:04am Weight 57.60 kg August 14 10:04am BP Systolic 118 mm[Hg] 110-140 August 14 10:04am BP Diastolic 74 mm[Hg] 60-90 August 14 10:04am BMI (Body Mass Index) 20.5 kg/m2 August 142018 10:04am Height 167.64 cm August 21, 9:45am Weight 57.37 kg August 21, 9:45am BP Systolic 128 mm[Hg] 110-140 August 21, 10:16am BP Diastolic 78 mm[Hg] 60-90 August 21, 10:16am BMI (Body Mass Index) 20.4 kg/m2 August 212018 9:45am Height 167.64 cm August 26, 8:54pm Weight 58.05 kg August 26, 8:54pm Body Temperature 98.4 [degF] 97.6-99.6 August 26, 2 019 8:54pm Heart Rate 83 /min -August 26, 8:54pm Respiratory rate 18 /min -August 26, 2 019 8:54pm Oxygen saturation by 97 % 95-100 August Pulse oximetry 8:54pm BP Systolic 162 mm[Hg] 110-140 August 26, 8:54pm BP Diastolic 91 mm[Hg] 60-90 August 26, 8:54pm BMI (Body Mass Index) 20.6 kg/m2 August 262018 8:54pm Height 167.64 cm August 30, 10:35am Weight 58.96 kg August 30, 10:35am BP Systolic 128 mm[Hg] 110-140 August 30, 10:35am BP Diastolic 84 mm[Hg] 60-90 August 30, 10:35am BMI (Body Mass Index) 20.9 kg/m2 August 302018 10:35am Height 167.64 cm September 01, 5:17am Weight 58.96 kg September 01, 5:17am Body Temperature 98.8 [degF] 97.6-99.6 September 03, 2019 7:50am Heart Rate 100 /min -September 03, 2 019 7:50am Respiratory rate 18 /min -September 03, 2019 7:50am Oxygen saturation by 98 % 95-100 September [id number] Pulse oximetry 4:00am BP Systolic 126 mm[Hg] 110-140 September 03, 2 019 7:50am BP Diastolic 72 mm[Hg] 60-90 September 03 7:50am BMI (Body Mass Index) 20.9 kg/m2 September 012018 5:17am
== END 2019-09-03 11:00 | disposition home or self-care (01) | DRG 807 ==
LOC: OB 04:56
PROVIDERS: ADMIT Nurse Practitioner Obstetrics & Gynecology; ATTEND Nurse Practitioner Obstetrics & Gynecology
CPT/HCPCS: 36415; 59025; 80305; 81001; 82800; 85014; 85018; 85025; 85461; 86850; 86870; J2790

== ENCOUNTER 2020-11-01 16:01 | Emergency (ER) | payer OTHER, SELFPAY ==
[2020-11-01 16:20] VITALS: BP 132/76; PULSE 84; RESP 20; TEMP 36.9; O2SAT 98; BMI 17.4
[2020-11-01 16:47] LABS: UTC Influenza A Antigen Negative (Negative); UTC Influenza B Antigen Negative (Negative)
--- NOTE | 2020-11-01 16:56 | HMH.EDUTC ---
[facility] Disposition Clinical Impression: Viral syndrome, Exposure to COVID-19 virus Disposition: Home, Self-Care Condition on Discharge: Good Instructions: Preventing the Spread of Coronavirus Discharge Instructions, DI for COVID-19 (Suspected or Confirmed ) Additional Instructions: Drink plenty of fluids. Take tylenol for pain or fever. Return if you begin to have difficulty breathing. Follow up with your regular doctor. GO TO THE ER FOR ANY WORSENING SYMPTOMS Referrals: Robert Mcclain MD [Primary Care Provider] - Forms: Work/School Release Time of Disposition: 17:06 Medical Decision Making - Medical Records Medical records reviewed: No: I reviewed the patient's medical records. - Subhash Inquiry Pt receiving controlled substance: No Vital Signs: 11/01/20 16:20 Temperature 98.5 F Temperature Source Oral Pulse Rate [Right Brachial] 84 Respiratory Rate 20 Blood Pressure [Right Arm] 132/76 Blood Pressure Mean [Right Arm] 94 Blood Pressure Source [Right Arm] Automatic Cuff Blood Pressure Position [Right Arm] Sitting 02 Sat by Pulse Oximetry 98 Oxygen Delivery Method Room Air - Lab Data Lab results reviewed: Yes: I reviewed the patient's lab results. Lab Results 11/01/20 16:33: Influenza Type A Ag Negative, Influenza Type B Ag Negative Orders (Tests/Meds): ORDERS Category Date Time Status Covid-19 Nasal PCR ([facility]) Routine Lab 11/01/20 16:25 Received [facility] HPI - General Stated complaint: nausea Time Seen by Provider: 11/01/20 16:56 Mode of Arrival: Ambulatory Source of Information: Patient Limitations: No Limitations Description of Symptoms (Recalled from Triage Doc. by RN): PATIENT C/O DRY COUGH AND CHILLS SINCE YESTERDAY AFTERNOON HEENT Symptoms (Recalled from RN notes): No Resp Symptoms (Recalled from RN notes): No Skin Symptoms (Recalled from RN notes): No MS Symptoms (Recalled from RN notes): No Functional Status (Recalled from RN notes): WNL - History of Present Illness Provider Complaint: She states that she has began to feel bad yesterday. 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 She c/o nausea, head ache, scratchy sore throat and a dry cough. - Related Data Allergies Allergy/AdvReac Type Severity Reaction Status Date / Time No Known Allergies Allergy Verified 10/11/19 10:42 - Worker's Comp Is this a Worker's Comp case?: No [facility] History - Hepatitis A Screen Drug use history?: No High risk sexual behaviors?: No History of sexually transmitted infection?: No Currently employed?: No Childcare worker?: No Do you have indoor plumbing?: Yes Do you have electricity?: Yes Attestation statement:: This patient has been screened for Hepatitis A risk factors. I have reviewed the patient's past medical history: Yes Medical History: Denies:: Seizures Other Surgeries: Yes: No Previous Surgery. 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 ROS Obtained: Yes All systems reviewed & no additional complaints - Constitutional Constitutional: Reports system reviewed and no additional complaints, except as docu - Eyes Eyes: Reports system reviewed and no additional complaints, except as docu - ENT Ears, Nose, Mouth, and Throat: Reports system reviewed and no additional complaints, except as docu - Cardiovascular Cardiovascular: Reports system reviewed and no additional complaints, except as docu - Respiratory Respiratory: Reports system reviewed and no additional complaints, except as docu - Gastrointestinal Gastrointestingal: Reports: system reviewed and no additional complaints, except as docu Physical Exam - General General appearance: alert, in no kristen
[2020-11-01 17:10] VITALS: BP 132/76; PULSE 84; RESP 20; TEMP 36.9; O2SAT 98
--- NOTE | 2020-11-01 20:51 | PC.NURSE ---
PT NOTIFIED OF POSITIVE COVID RESULT
== END 2020-11-01 17:12 | disposition home or self-care (01) ==
PROVIDERS: Emergency Provider Nurse Practitioner Family; PCP Family Medicine
DX: U07.1 COVID-19 (principal); F17.210 Nicotine dependence, cigarettes, uncomplicated
CPT/HCPCS: 87804; 99202; G0463; U0003

== ENCOUNTER 2020-11-25 17:14 | Emergency (ER) | payer OTHER, SELFPAY ==
[2020-11-25 17:15] VITALS: BP 131/87; PULSE 106; RESP 18; TEMP 36.9; O2SAT 100; BMI 16.1
[2020-11-25 17:51] LABS: UTC Pregnancy Test, Urine Negative (Negative)
--- NOTE | 2020-11-25 17:51 | HMH.EDUTC ---
[facility] – [place] Disposition Clinical Impression: Dizziness Disposition: Home, Self-Care Condition on Discharge: Good Instructions: Vertigo, Meclizine Additional Instructions: Take meclizine as prescribed for dizziness Follow up with your Doctor if no improvement or any worsening of symptoms Follow up immediately if any syncope/fainting Straight to ER if any life threatening symptoms Return if needed Prescriptions: Meclizine HCl [Antivert 12.5mg tablet] 12.5 mg PO BID PRN #10 tab PRN Reason: Dizziness Prescription Printed Referrals: Robert Mcclain MD [Primary Care Provider] - Time of Disposition: 18:06 Medical Decision Making - Subhash Inquiry Pt receiving controlled substance: No Subhash was queried for this patient: No Vital Signs: 11/25/20 17:15 Temperature 98.4 F Temperature Source Oral Pulse Rate [Right Brachial] 106 H Respiratory Rate 18 Blood Pressure [Right Arm] 131/87 Blood Pressure Mean [Right Arm] 101 Blood Pressure Source [Right Arm] Automatic Cuff Blood Pressure Position [Right Arm] Sitting 02 Sat by Pulse Oximetry 100 Oxygen Delivery Method Room Air - Lab Data Lab Results 11/25/20 17:33: [facility] Negative Orders (Tests/Meds): ED MEDICATIONS Discontinued Medications Generic Name Dose Route Start Last Admin Trade Name Freq PRN Reason Stop Dose Admin Meclizine HCl 12.5 mg 11/25/20 17:53 Meclizine 25mg Tablet PO 11/25/20 17:54 ONCE ONE Medical Decision Narrative: Patient denies Syncope since last week after she turned suddenly, got dizzy and fainted States that she has been having episodes of dizziness on and off with sudden movements and raising up Discussed transfer to the ED for further evaluation patient declined and agreed to try meclizine for dizziness and if no improvement she would follow up with her PCP for further evaluation and Head CT if warranted Patient spoke with mother and agreed to take medication After medication patient states that dizziness is much improved [facility] – [place] HPI - General Stated complaint: AO [id number] fell in bathroom hit head Time Seen by Provider: 11/25/20 17:51 Mode of Arrival: Ambulatory Source of Information: Patient Limitations: No Limitations Description of Symptoms (Recalled from Triage Doc. by RN): PATIENT REPORTS THAT SHE PASSED OUT LAST WEEK AND FELL IN THE BATHROOM. SHE STATES THAT SINCE SHE FELL SHE BECOMES FAINT AT TIMES HEENT Symptoms (Recalled from RN notes): No Resp Symptoms (Recalled from RN notes): No Skin Symptoms (Recalled from RN notes): No MS Symptoms (Recalled from RN notes): No Functional Status (Recalled from RN notes): WNL - History of Present Illness Provider Complaint: Patient states that last week she got dizzy and fell in her bathroom and hit her head States that she was fine after that but has noticed that she gets dizzy at times when she makes a sudden movement and turns certain ways States that she has been having pressure like feeling in her ears on and off and noticed dizziness is worse after movement - Related Data Previous Rx's Medication Instructions Recorded Ondansetron [Zofran 4mg ODT] 4 mg PO Q8HP PRN #20 tab.rapdis 11/01/20 Meclizine HCl [Antivert 12.5mg 12.5 mg PO BID PRN #10 tab 11/25/20 tablet] Allergies Allergy/AdvReac Type Severity Reaction Status Date / Time No Known Allergies Allergy Verified 10/11/19 10:42 - Worker's Comp Is this a Worker's Comp case?: No [facility] History - Hepatitis A Screen Drug use history?: No High risk sexual behaviors?: No History of sexually transmitted infection?: No Currently employed?: No Childcare worker?: No Do you have indoor plumbing?: Yes Do you have electricity?: Yes Attestation statement:: This patient has been screened for Hepatitis A risk factors. I have reviewed the patient's past medical history: Yes Medical History: Denies:: Seizures Other Surgeries: Yes: No Previous Surgery. No: Amputation: No
[2020-11-25 18:13] VITALS: BP 131/87; PULSE 106; RESP 18; TEMP 36.9; O2SAT 100
== END 2020-11-25 18:15 | disposition home or self-care (01) ==
PROVIDERS: Emergency Provider Nurse Practitioner; PCP Family Medicine
DX: R42 Dizziness and giddiness (principal); W18.39XA Other fall on same level, initial encounter; Y92.031 Bathroom in apartment as the place of occurrence of the external cause
CPT/HCPCS: 81025; 99202; G0463

== ENCOUNTER 2024-01-22 21:15 | Emergency (ER) | payer BC, SELFPAY ==
[2024-01-22 21:17] VITALS: BP 145/81; PULSE 102; RESP 18; TEMP 36.9; O2SAT 98; BMI 16.9
[2024-01-22 21:26] VITALS: BP 145/81; PULSE 110; O2SAT 98
[2024-01-22 21:30] VITALS: BP 147/85; PULSE 109; O2SAT 98
[2024-01-22 21:34] LABS: Appearance,Urine CLEAR (Clear); Bilirubin,Urine Negative (Negative); Blood, Urine Negative (Negative); Color,Urine YELLOW (Yellow); Glucose,Urine (UA) Negative (Negative); Ketones,Urine Negative (Negative); Leukocyte Esterase,Urine Negative (Negative); Microscopic, Urine URINE MICROSCOPIC (MICROSCOPIC); Nitrate,Urine Negative (Negative); Protein,Urine Negative (Negative); Specific Gravity, Urine >= 1.030 (1.005-1.030); Urobilinogen,Urine 0.2 EU/dl (0.2)
[2024-01-22] MEDS: ACETAMINOPHEN 1,000MG/100ML VIAL 1000 MG IV (21:36)
[2024-01-22] MEDS: KETOROLAC 30MG/ML VIAL 15 MG IV (21:36)
--- NOTE | 2024-01-22 21:46 | ED_ITS ---
Discharge Plan Disposition Patient Disposition: Home, Self-Care Prescriptions Prescriptions: No Action No Known Home Medications Referrals Follow up/Referrals: Robert Mcclain MD [Primary Care Provider] - See instructions Activity Restrictions/Add. Instructions Additional Instructions/Restrictions: Call your family doctor to establish care for this visit to the emergency department and schedule follow-up within 48 hours to ensure improvement. If you have any worsening of your condition or any other concerning signs or symptoms, return to the emergency department or your primary care doctor for further evaluation. Clinical Impressions Clinical Impression: Abdominal pain Instructions Patient Instructions: DI for Acute Abdominal Pain Discharge ED Provider: [facility] HPI General Chief complaint: Abdominal Pain Stated complaint: Pain in waist line area Time Seen by Provider: 01/22/24 21:21 Mode of Arrival: Ambulatory Source of Information: Patient Limitations: No Limitations Description of Symptoms (Recalled from ER Triage Doc. by RN): 23 F presents from home with 12 hours of RUQ abdominal pain that began 1 hour after eating breaskfast this AM. Patient denies n/v/d, fever, chills, dysuria. Movement makes it worse, but resting causes pain to subside. History of Present Illness HPI narrative: 23-year-old female no past medical history presenting with abdominal pain. Patient states that it started after eating breakfast this morning, 01/21. Right upper quadrant/epigastric, does not radiate. Made worse with movement, made better with rest. Has not taken anything for the pain. No nausea, vomiting, diarrhea, constipation, urinary symptoms, abnormal vaginal discharge or bleeding, new medications, or any other concerns. Please note that above description of symptoms, in this electronic medical record under categorization of recalled from ER triage doctor by RN are reflective of an initial nursing assessment, however, is not reflective of my full history and physical exam that was personally taken and clarified. Consequentially, this preceding description of symptoms, which may include the patient's categorized chief complaint in the EMR, do not reflect my personal clinical impression, and the ultimate description of history of present illness and patient stated complaints should be deferred to this section of the note. Unless stated otherwise or congruent with this section of the note, additional signs, symptoms, or incongruence should be interpreted as inaccurate with my clinical impression. Related Data Home Medications Medication Instructions Recorded Confirmed No Known Home Medications 03/20/21 01/22/24 Allergies Allergy/AdvReac Type Severity Reaction Status Date / Time No Known Allergies Allergy Verified 03/20/21 16:55 [facility] Disclaimer: The information contained in this section may have been updated after the patient was seen, as this information can be updated by other users. Social History Smoking Status: Current every day smoker tobacco type: cigarettes packs per day: 1 alcohol intake: never substance use type: denies use current occupational status: other Travel in the last 8 weeks: Inside the [place] ([place] in January 2021) ROS Obtained: Yes All systems reviewed & no additional complaints except as documented Physical Exam General General appearance: alert and in no apparent distress Head Head exam: atraumatic and normocephalic Eye Eye exam: Present normal appearance, PERRL and EOMI ENT ENT exam: Present mucous membranes moist Neck Neck exam: Present normal inspection, full ROM and trachea midline Respiratory Respiratory exam: Absent respiratory distress, wheezes, stridor, accessory muscle use or prolonged expiratory phase Cardiovascular Cardiovascular exam: Present normal rhythm Abdominal Exam Abdominal exam: Present soft and tenderness; Absent distention, guarding, rebound or rigidity Abdominal tenderness: Present RUQ and mild Extremities Exam Extremities exam: Absent edema Neurological Exam Neurological exam: Present alert, oriented X3, CN II-XII intact and normal gait; Absent motor sensory deficit Skin Skin exam: Present warm and dry; Absent diaphoresis or erythema Medical Decision Making Medical Records Medical records reviewed: Yes I reviewed the patient's medical records. Subhash Inquiry Pt receiving controlled substance: No Subhash was queried for this patient: No Vital Signs: 01/22/24 21:17 01/22/24 21:26 01/22/24 21:30 Temperature 98.5 F Temperature Source Oral Pulse Rate 110 H 109 H Pulse Rate [Left] 102 H Respiratory Rate 18 Blood Pressure 145/81 H 147/85 H Blood Pressure [Right Arm] 145/81 H Blood Pressure Mean 102 102 Blood Pressure Mean [Right Arm] 102 Blood Pressure Source [Right Arm] Automatic Cuff Blood Pressure Position [Right Arm] Sitting 02 Sat by Pulse Oximetry 98 98 98 Oxygen Delivery Method Room Air Room Air Room Air 01/22/24 22:00 01/22/24 22:30 01/22/24 23:36 Temperature 98.4 F 97.6 F Temperature Source Oral Oral Pulse Rate 82 72 76 Pulse Rate [Left] Respiratory Rate 18 16 18 Blood Pressure 119/70 103/63 L 112/75 Blood Pressure [Right Arm] Blood Pressure Mean 86 76 Blood Pressure Mean [Right Arm] Blood Pressure Source [Right Arm] Blood Pressure Position [Right Arm] 02 Sat by Pulse Oximetry 99 97 Oxygen Delivery Method Room Air Room Air Room Air Lab Data Lab Results 01/22/24 21:19: Urine Color Yellow, Urine Appearance Clear, Urine pH 6.0, Ur Specific [place] >= 1.030, Urine Protein Negative, Urine Glucose (UA) Negative, Urine Ketones Negative, Urine Blood Negative, Urine Nitrate Negative, Urine Bilirubin Negative, Urine Urobilinogen 0.2, Ur Leukocyte Esterase Negative, Urine RBC Occasional, Urine WBC 3-5, Ur Squamous Epith Cells 5-10, Urine Bacteria 1+ 01/22/24 21:33: WBC 9.9, RBC 4.28, Hgb 12.6, Hct 39.0, MCV 91.0, MCH 29.4, MCHC 32.3, RDW 13.6, Plt Count 205, MPV 9.1, Neut % (Auto) 56.4, Lymph % (Auto) 34.3, [place] % (Auto) 4.8, Eos % (Auto) 3.1, Baso % (Auto) 1.3, Neut # (Auto) 5.6, Lymph # (Auto) 3.4, [place] # (Auto) 0.5, Eos # (Auto) 0.3, Baso # (Auto) 0.1, Sodium 140, Potassium 3.4 L, Chloride 111 H, Carbon Dioxide 21 L, Anion Gap 11.4, BUN 13, Creatinine 0.70, Estimated Creat Clear 92, Estimated GFR 102, Est GFR ( Amer) 123, Glucose 92, Calcium 9.6, Total Bilirubin 0.3, AST 49 H, ALT 38, Alkaline Phosphatase 74, Total Protein 7.7, Albumin 4.4, Globulin 3.3 H, Albumin/Globulin Ratio 1.3, Lipase 457 H, HCG, Quant < 2 01/22/24 21:33 01/22/24 21:33 Orders (Tests/Meds): ED MEDICATIONS Discontinued Medications Generic Name Dose Route Start Last Admin Trade Name Freq PRN Reason Stop Dose Admin Acetaminophen 1,000 mg 01/22/24 21:30 01/22/24 21:36 Acetaminophen 1,000mg/100ml Vial IV 01/22/24 21:31 1,000 mg ONCE ONE Administration Ketorolac Tromethamine 15 mg 01/22/24 21:30 01/22/24 21:36 Ketorolac 30mg/Ml Vial IV 01/22/24 21:31 15 mg ONCE ONE Administration ORDERS Category Date Time Status POCUS Point of Care (ER Only) Stat Exams 01/22/24 21:30 Ordered CBC w/Auto Diff [Complete Blood Count Auto Diff] Stat Lab 01/22/24 21:33 Completed CMP [Comprehensive Metabolic Panel] Stat Lab 01/22/24 21:33 Completed HCG,Quantitative Stat Lab 01/22/24 21:33 Completed Lipase Stat Lab 01/22/24 21:33 Completed UA [Urinalysis and Microscopic] Stat Lab 01/22/24 21:19 Completed Medical Decision Narrative: 23-year-old female no past medical history presenting with abdominal pain. Patient states that it started after eating breakfast this morning, 01/21. Right upper quadrant/epigastric, does not radiate. Made worse with movement, made better with rest. Has not taken anything for the pain. No nausea, vomiting, diarrhea, constipation, urinary symptoms, abnormal vaginal discharge or bleeding, new medications, or any other concerns. History was obtained via conversation with patient and . On arrival, patient hemodynamically stable, alert, oriented x4, appropriate, GCS 15, moving all extremities spontaneously, pupils equal and reactive to light. Full physical exam performed and significant for well-appearing woman in no acute distress. Abdomen is soft, nondistended, but tender in the right upper quadrant. Delarosa sign negative. No flank tenderness. No overlying skin change. No evidence of peritonitis. Differential includes PUD, gastritis, enteritis, gastroenteritis, pancreatitis, SBO, colitis, diverticulitis, nephrolithiasis, UTI, , cholecystitis, choledocholithiasis, appendicitis, hepatitis, torsion, aortic pathology, mesenteric ischemia among others Patient was given Toradol, [place] of, for symptomatic management and correction of underlying abnormalities. Workup independently interpreted and significant for nonactionable CBC. Chemistry also nonactionable with normal kidney function, nonactionable LFTs and lipase mildly elevated at 450. hCG negative, urinalysis without concern for UTI. Bedside point of care ultrasound with negative right upper quadrant findings On reevaluation, patient feeling much better after Toradol and acetaminophen. Given patient presentation, workup, history, this most likely represents idiopathic abdominal pain. Because patient at baseline without signs or symptoms of clinical decompensation, deemed appropriate for discharge. Results were relayed to patient who voiced understanding and were agreeable to outpatient management and follow up. I discussed my clinical impression with patient and answered all questions. At this time, the evidence for any other entities in the differential is insufficient to warrant any further testing or ED observation. This was explained as well. Advisory was given that persistent or worsening symptoms require further evaluation. I confirmed the understanding of this discussion. Procedures Limited Ultrasound Indication:: Limited RUQ ultrasound Indication: Abdominal pain Identified structures: -Gallbladder -Gallbladder wall -Common bile duct -Liver Findings: Sonographic Delarosa sign: Absent Gallstones: Absent Sludge: Absent Pericholecystic fluid: Absent Maximal GB wall thickness (mm) (normal is </= 3mm): Normal Common bile duct width (mm) (normal is </= 6mm): Normal Gallbladder width (cm) (normal is < 4cm): Normal Gallbladder length (cm) (normal is < 10cm): Normal Impression: Normal gallbladder Images were saved to permanent archive The study was technically adequate CPT 62638-59 This study was performed by me, and I personally interpreted all images/videos. Based on my clinical judgement, these images were adequate and not necessitate further imaging. Critical Care Critical Care Time Critical Care Time: No
[2024-01-22 21:47] LABS: Basophils # 0.1 K/mm3 (0-0.2); Basophils % 1.3 % (0.1-2.0); Eosinophils # 0.3 K/mm3 (0.0-0.4); Eosinophils % 3.1 % (0.1-12.0); Hemoglobin 12.6 g/dL (12.2-16.2); Lymphocytes # 3.4 K/mm3 (0.7-4.5); Lymphocytes % 34.3 % (10-50); Mean Corpuscular HGB Conc 32.3 g/dL (31.8-35.4); Mean Corpuscular Hemoglobin 29.4 pg (27.0-31.2); Mean Platelet Volume 9.1 fl (7.4-10.4); Monocytes # 0.5 K/mm3 (0.1-1.0); Monocytes % 4.8 % (1.7-9.3); Neutrophils # 5.6 K/mm3 (1.8-7.8); Neutrophils % 56.4 % (37.0-80.0); Platelet Count 205 K/mm3 (142-424); Red Blood Count 4.28 M/mm3 (4.20-5.40); Red Cell Distribution Width 13.6 % (11.5-17.5); White Blood Count 9.9 K/mm3 (4.8-10.8)
[2024-01-22 21:52] LABS: Chloride 111 mmol/L (98-107)
[2024-01-22 21:53] LABS: Potassium 3.4 mmoL/L (3.5-5.1); Sodium 140 mmol/L (136-145)
[2024-01-22 21:55] LABS: Alanine Aminotransferase 38 U/L (12-78); Alkaline Phosphatase 74 U/L (38-126); Aspartate Amino Transferase 49 U/L (14-36); Bilirubin,Total 0.3 mg/dl (0.2-1.3); Blood Urea Nitrogen 13 mg/dl (7-17); Creatinine Clearance Estimated 92 mL/min (50-200); Estimated Glomerular Filt Rate 102 ml/min (>60); GFR (African American) 123 ML/MIN (>60)
[2024-01-22 21:56] LABS: Albumin Level 4.4 g/dl (3.5-5.0); Albumin/Globulin Ratio 1.3 (1.1-1.8); Anion Gap 11.4 mEq/L (5-15); Calcium 9.6 mg/dl (8.4-10.2); Carbon Dioxide 21 mmol/L (22.0-30.0); Globulin 3.3 g/dL (1.3-3.2); Glucose 92 mg/dl (74-100); Lipase 457 U/L (23-300); Total Protein,Serum 7.7 g/dl (6.3-8.2)
[2024-01-22 22:00] VITALS: BP 119/70; PULSE 82; RESP 18; O2SAT 99
[2024-01-22 22:04] LABS: Bacteria,Urine 1+ /lpf; RBC,Urine Occasional #/hpf (0-3)
[2024-01-22 22:14] LABS: HCG,Quantitative < 2 mIU/ml (0-5.42)
[2024-01-22 22:30] VITALS: BP 103/63; PULSE 72; RESP 16; TEMP 36.9; O2SAT 97
[2024-01-22 23:36] VITALS: BP 112/75; PULSE 76; RESP 18; TEMP 36.4; O2SAT 96
== END 2024-01-22 23:37 | disposition home or self-care (01) ==
PROVIDERS: Emergency Provider Emergency Medicine; PCP Family Medicine
DX: R10.11 Right upper quadrant pain (principal); F17.210 Nicotine dependence, cigarettes, uncomplicated
CPT/HCPCS: 80053; 81001; 83690; 84702; 85025; 96374; 96375; 99284; J0131